=== PATIENT | female | born 1950 | race Caucasian/White ===

== ENCOUNTER 2017-06-09 07:19 | Outpatient (CLI) | payer OTHER ==
[2017-06-09 07:38] LABS: BASOPHILS # (AUTO) 0.1 K/uL (0-0.2); BASOPHILS % (AUTO) 1.1 % (0.0-3.0); EOSINOPHILS # (AUTO) 0.3 K/ul (0.0-0.7); EOSINOPHILS % (AUTO) 6.1 % (0.0-7.0); HEMATOCRIT 39.8 % (37.0-47.0); HEMOGLOBIN 13.7 g/dl (12.0-16.0); IMMATURE GRANULOCYTE % (AUTO) 0.2 % (0.0-5.0); LYMPHOCYTES # (AUTO) 1.8 K/uL (0.60-3.4); LYMPHOCYTES % (AUTO) 32.8 (10.0-50.0); MEAN CORPUSCULAR HEMOGLOBIN 30.6 pg (27.0-31.0); MEAN CORPUSCULAR HGB CONC 34.4 (31.8-35.4); MONOCYTES # (AUTO) 0.3 K/uL (0.4-2.0); MONOCYTES % (AUTO) 5.5 (0-10); NEUTROPHILS # (AUTO) 2.9 K/ul (2.0-6.9); NEUTROPHILS % (AUTO) 54.3; PLATELET COUNT 249 10^3/uL (140-440); RED BLOOD COUNT 4.47 10^6/ul (4.20-5.40); WHITE BLOOD COUNT 5.42 K/ul (4.6-10.2)
[2017-06-09 08:22] LABS: ALBUMIN 4.1 g/dL (3.4-5.0); ALBUMIN/GLOBULIN RATIO 1.14; ANION GAP 14.2; BILIRUBIN,TOTAL 0.66 mg/dL (0.00-1.20); BUN/CREATININE RATIO 16.66; CALCIUM 9.6 mg/dL (8.2-10.2); CHOL/HDL RATIO 6.3 (4.5-5.5); CREATININE 0.9 mg/dL (0.60-1.30); POTASSIUM 4.2 mmol/L (3.5-5.10); TOTAL PROTEIN 7.7 g/dL (5.8-8.1)
== END 2017-06-09 07:20 | disposition home or self-care (01) ==
LOC: LAB 07:19
PROVIDERS: ATTEND Nurse Practitioner
DX: R53.83 Other fatigue (principal)
CPT/HCPCS: 36415; 80053; 80061; 84439; 84443; 84479; 85025

== ENCOUNTER 2017-06-10 08:33 | Outpatient (CLI) ==
--- NOTE | 2017-06-10 09:31 | MAMMO ---
EXAM: Bilateral digital screening mammogram History: Screening Comparison: Bilateral mammogram 10/19/2014 Findings: MLO and CC views of bilateral breasts demonstrate scattered fibroglandular breast parench yma. Stable benign bilateral breast calcifications. Stable benign bilateral axillary lymph nodes. There are no dominant masses, no suspicious microcalcifications and no architectural distortions Impression: Benign stable mammogram. Recommend followup routine screening mammography in 1 year. BIRADS 2
== END 2017-06-10 08:34 | disposition home or self-care (01) ==
LOC: RAD 08:33
PROVIDERS: ATTEND Nurse Practitioner
DX: Z12.31 Encounter for screening mammogram for malignant neoplasm of breast (principal); M81.0 Age-related osteoporosis without current pathological fracture
CPT/HCPCS: 77067

== ENCOUNTER 2018-10-27 09:53 | Outpatient (CLI) ==
--- NOTE | 2018-10-27 10:16 | DI ---
EXAM: Two views of the chest. History: Cough. Comparison: Chest radiograph 02/14/2009 Findings: Heart size is normal. No focal consolidation. No appreciable pleural fluid and no pneumo thorax. No acute osseous abnormalities. 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 Impression: No acute cardiopulmonary process.
== END 2018-10-27 09:54 | disposition home or self-care (01) ==
LOC: RAD 09:53
PROVIDERS: ATTEND Internal Medicine
DX: R05 Cough (principal)

== ENCOUNTER 2018-11-05 06:41 | Outpatient (CLI) | payer OTHER ==
--- NOTE | 2018-11-08 11:01 | ECHO2D ---
Date of Exam: 11/05/18 Ordering Physician: DR. BRADY WALTON Room #: OP Reason for Echo: SOB, PVC'S, DYSLIPIDEMIA M-Mode Normal Adult Results LV Dimensions Normal Adult Results AoV Opening excursions >1.6 >1.6 LVEDD-base- 3.5-5.8 5.6 Ao root dimensions 2.0-3.7 3.3 LVESD-base- 3.1-4.6 L. Atrium dimensions 1.9-3.8 4.1 Post. Wall thickness 0.8-1.1 1.1 IV septum (thickness) 0.7-1.2 1.3 Post. Wall excursion 0.72-1.3 NORMAL Septal motion NORMAL Systolic motion R. Ventricular cavity 1.5-2.0 NORMAL LVEF 60% 50% Paradoxical septal wall motion NORMAL 2-D : 2-D M Mode Echocardiogram was performed using apical four chamber and left parasternal long and short axis views. Mitral, tricuspid and aortic valves appear to be normal. Contractility of the left ventricle seems to be normal, so is the cavity size. Enlarged Left atrial cavity size. Aortic root appears to be normal. There is no pericardial effusion. There is no thrombus noted in the left ventricular or left aortic cavity. No mitral valve prolapse noted. M-MODE: MV: NORMAL AV: NORMAL TV: NORMAL PV: CHAMBER SIZE: BORDERLINE LEFT ATRIAL CAVITY SIZE WALL MOTION: NORMAL PERICARDIUM: NORMAL INTERPRETATION: 1. LEFT VENTRICULAR HYPERTROPHY BORDERLINE LEFT ATRIAL CAVITY ENLARGEMENT 2. LEFT VENTRICULAR CONTRACTILITY--EJECTION FRACTION 50%, NEAR NORMAL 3. LEFT VENTRICLE CAVITY 5.6 CM--UPPER LIMIT OF NORMAL 4. NORMAL VALVES WITH 2 "D" "M" MODE ECHO MTDD
== END 2018-11-05 06:42 | disposition home or self-care (01) ==
LOC: CAR 06:41
PROVIDERS: ATTEND Internal Medicine
DX: R06.02 Shortness of breath (principal); E78.5 Hyperlipidemia, unspecified; I49.3 Ventricular premature depolarization

== ENCOUNTER 2018-11-08 06:43 | Outpatient (CLI) ==
--- NOTE | 2018-11-08 10:43 | STRESSECHO ---
Date of Test: 11/08/18 Ordering Physician: DR. BRADY WALTON Occupation: RETIRED Reason for Exam: SOB, PVC, DYSLIPIDEMIA Height: 68" Weight: 220 LBS Current Medications: ASA, OMEGA 3, REPATHA, VITAMINS Resting EKG: SINUS RHYTHM/ NO ACUTE CHANGES/ISOLATED PVC'S Target Heart Rate: 130/153 S-T SEGMENT STAGE MPH/GRADE HEART RATE BPM BLOOD PRESSURE MMHG RHYTHM +/- ELEVATION DEPRESSION SYMPTOMS AT REST 80 BPM 156/96 [facility] SR X NONE 1 1.7/10% 110 BPM 160/88 MM[facility] SR X NONE 2 2.5/12% 3 3.4/14% 4 4.2/16% 5 5.0/18% Immediately After 131 BPM 190/82 MM[facility] SR X SHORT OF BREATH Minutes Post Exercise 5:00 82 BPM 176/88 MM[facility] SR X NONE Minutes Post Exercise DURATION OF EXERCISE: 5:02 MAXIMUM HEART RATE REACHED: 133 BPM REASON FOR TERMINATION: SHORT OF BREATH 96% OXYGEN SATURATION WITH EXERCISE ON ROOM AIR METS 7.0 INTERPRETATION: 1.NO EVIDENCE OF ISCHEMIA BY ST-T WAVE 2. NO CHEST PAIN OR DISCOMFORT 3. BLOOD PRESSURE RESPONSE: HYPERTENSION AT REST AND WITH EXERCISE 4. PVC'S ISOLATED AT REST AND WITH EXERCISE NORMAL LEFT VENTRICULAR CONTRACTILITY--RESTING AND POST EXERCISE MTDD
--- NOTE | 2018-11-10 13:10 | ECHOSTRESS ---
Date of Exam: 11/08/18 Ordering Physician: DR. BRADY WALTON Reason for Echo: SOB, PVC, DYSLIPIDEMIA, STRESS TEST--NO ISCHEMIA M-Mode Normal Adult Results LV Dimensions Normal Adult Results AoV Opening excursions >1.6 LVEDD-base- 3.5-5.8 Ao root dimensions 2.0-3.7 LVESD-base- 3.1-4.6 L. Atrium dimensions 1.9-3.8 Post. Wall thickness 0.8-1.1 IV septum (thickness) 0.7-1.2 Post. Wall excursion 0.72-1.3 Septal motion Systolic motion R. Ventricular cavity 1.5-2.0 LVEF 60% Paradoxical septal wall motion 2-D: NORMAL LEFT VENTRICULAR CONTRACTILITY--RESTING AND POST EXERCISE M-MODE: MV: AV: TV: PV: CHAMBER SIZE: WALL MOTION: NORMAL LEFT VENTRICULAR CONTRACTILITY--RESTING AND POST EXERCISE PERICARDIUM: INTERPRETATION: 1. NORMAL LEFT VENTRICULAR CONTRACTILITY--RESTING AND POST EXERCISE MTDD
== END 2018-11-08 06:44 | disposition home or self-care (01) ==
LOC: CAR 06:43
PROVIDERS: ATTEND Internal Medicine
DX: R06.02 Shortness of breath (principal); E78.5 Hyperlipidemia, unspecified; I49.3 Ventricular premature depolarization

== ENCOUNTER 2018-12-24 07:46 | Outpatient (CLI) ==
--- NOTE | 2018-12-24 09:28 | DI ---
EXAM: Two views of the chest. History: Cough. Comparison: Chest radiograph 10/27/2018 Findings: Heart is mildly enlarged. No focal consolidation. No appreciable pleural fluid and no pn eumothorax. No acute osseous abnormalities. Impression: Mild cardiomegaly without acute disease in the chest
--- NOTE | 2018-12-24 15:39 | MRI ---
EXAM: MRI orbits/brain without IV contrast. DATE: 12/24/2018. HISTORY: Dizziness. Blurred vision. TECHNIQUE: Sagittal T1W, axial T2W, axial FLAIR, axial T1W and axial DWI sequences of the brain were obtained using 1.5 Sadaf magnet. Additional thin slice axial and coronal T1W and coronal T2W sequen magalys centered on the orbits were obtained. COMPARISON: Carotid ultrasound 05/31/2012. FINDINGS: Lateral ventricles, Sylvian fissures, and many cerebral sulci are mildly prominent due to involutional change. The remaining ventricles, cisterns, and subarachnoid spaces are normal in size and configuration. No midline shift, mass effect, or abnormal extra-axial fluid collection is appare nt. No acute infarct, hemorrhage or intra-axial neoplasm is visible. Minimal T2W/FLAIR hyperintensi ty is observed in the white matter abutting the anterior horn of each lateral ventricle. A few 1-2 m m diameter of T2W/FLAIR bright, non-enhancing foci are scattered within the left frontal martínez radia ta and subcortical white matter. The zeng - white matter differentiation is normal. No migration or diverticulation abnormality is apparent. The amygdala, hippocampus, and parahippocampal gyri are sy mmetric and normal bilaterally. The 7th/8th cranial nerve complexes, cerebellopontine angles, brains tem, and visible cervical spinal cord normal. There is no cerebellar tonsillar ectopia. Pituitary g land is normal in size and has normal signal. Corpus callosum is normal in size and configuration. Left vertebral artery is larger than the right. Flow voids are present in the major intracranial art eries and in the dural venous sinuses. No aneurysm, AVM, or dural venous sinus thrombosis is apparen t. The mastoid air cells are normal. There is no acute sinusitis. Several small lymph nodes are de monstrated in the upper neck bilaterally. Minor adenoid tissue prominence appears benign. No upper neck mass or lymphadenopathy is identified. No calvarial neoplasm or actue fracture is demonstrated. Thin slice sequences centered on the orbits reveal no abnormality of the globe, lens, muscles, retrob ulbar fat, or vessels in either eye. There is no abnormality of the optic nerves, optic chiasm or op tic tracts. The osseous perez of both orbits appear normal. The cavernous sinus and Meckel's cave a re symmetric and normal bilaterally. No brainstem lesion or cranial nerve abnormality is visible. IMPRESSIONS: 1. Normal bilateral orbits without contrast. 2. No acute infarct, hemorrhage, neoplasm or hydrocephalus. 3. 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 4. Mild cerebral and minor cerebellar atrophy.
== END 2018-12-24 07:47 | disposition home or self-care (01) ==
LOC: RAD 07:46
PROVIDERS: ATTEND Internal Medicine
DX: R42 Dizziness and giddiness (principal); R05 Cough
CPT/HCPCS: 36415; 82565